=== PATIENT | female | born 1960 | race Caucasian/White ===

== ENCOUNTER 2025-06-21 13:46 | Inpatient (IN) | payer MEDICARE, OTHER ==
[2025-06-21] MEDS ORDERED: Non-Formulary Medication 1 Each (Rimegepant Sulfate [Nurtec Odt] 75 MG Tab.Rapdis) PO PRN (14:23)
[2025-06-21] MEDS: ACAMPROSATE 333 MG PO SCH (15:24)
[2025-06-21] MEDS: Verapamil 120 MG Tab.ER PO SCH (20:50)
[2025-06-21] MEDS: Sennosides/Docusate Sodium 50-8.6 MG Tab PO SCH (20:53)
[2025-06-22] MEDS: Multivitamins with Iron/Calcium/Folic Acid/Minerals Tab PO SCH (08:47)
[2025-06-22] MEDS: Cyanocobalamin (Vitamin B12) 500 MCG Tab PO SCH (10:00)
[2025-06-23] MEDS: Ondansetron 4 MG Tab.DIS PO PRN (08:11)
== END 2025-06-25 10:52 | disposition home or self-care (01) | DRG 561 ==
LOC: FB.MS 13:46
PROVIDERS: ADMIT Family Medicine; ATTEND Internal Medicine
DX: S22.49XD Multiple fractures of ribs, unspecified side, subsequent encounter for fracture with routine healing (principal); S22.030D Wedge compression fracture of third thoracic vertebra, subsequent encounter for fracture with routine healing; R53.1 Weakness; F10.10 Alcohol abuse, uncomplicated; F41.9 Anxiety disorder, unspecified; H54.7 Unspecified visual loss; I10 Essential (primary) hypertension; E78.5 Hyperlipidemia, unspecified; K21.9 Gastro-esophageal reflux disease without esophagitis; G43.909 Migraine, unspecified, not intractable, without status migrainosus; F32.A Depression, unspecified; E03.9 Hypothyroidism, unspecified; M79.89 Other specified soft tissue disorders; Z91.81 History of falling; Z87.820 Personal history of traumatic brain injury; Z79.899 Other long term (current) drug therapy; Z87.891 Personal history of nicotine dependence; Z91.89 Other specified personal risk factors, not elsewhere classified; W19.XXXD Unspecified fall, subsequent encounter
CPT/HCPCS: 94150; 97112-GP; 97116-GP; 97161-GP; 97165-GO; 97530-GP; 99305; 99316; A9270-GY; Q0162